=== PATIENT | female | born 1960 | race Caucasian/White ===

== ENCOUNTER 2018-03-05 12:11 | Outpatient (CLI) | payer MEDICARE ==
--- NOTE | 2018-03-09 14:35 | XRAY Report ---
Reason: SOB/MCGOVERN/COUGH X>1 MONTH Procedure Date: 03/05/2018 Accession Number: [id number] / [id number] Procedure: XR - Chest 2 View X-Ray CPT Code: 11459 FULL RESULT: EXAM: CHEST RADIOGRAPHY EXAM DATE: 03/05/2018 12:24 PM. CLINICAL HISTORY: Shortness of breath, dyspnea on exertion, and cough x1 month. COMPARISON: None. TECHNIQUE: 2 views. FINDINGS: Lungs/Pleura: No focal opacities evident. No pleural effusion. No pneumothorax. Normal volumes. Mediastinum: Heart and mediastinal contours are unremarkable. Other: None. IMPRESSION: Normal 2-view chest radiography. RADIA
== END 2018-03-05 12:12 | disposition home or self-care (01) ==
LOC: DI 12:11
PROVIDERS: ATTEND Family Medicine
DX: R06.02 Shortness of breath (principal); R05 Cough; R06.00 Dyspnea, unspecified
CPT/HCPCS: 71046

== ENCOUNTER 2020-06-11 09:56 | Outpatient (CLI) | payer MEDICARE, OTHER ==
--- NOTE | 2020-06-11 11:30 | Ultrasound Report ---
PROCEDURE: Retroperitoneal INDICATIONS: New chronic kidney disease; elevated adrenal hormones TECHNIQUE: Real-time scanning was performed of the retroperitoneal organs, with image documentation. COMPARISON: None. FINDINGS: Both kidneys are normal in size, measuring approximately 10.6 cm in long axis. Cortical thickness is preserved bilaterally. Cortical echogenicity is subjectively heterogeneously and mildly increased lisa aterally. No focal mass. No shadowing calculus or hydronephrosis. The urinary bladder is decompressed and not well evaluated but grossly unremarkable. IMPRESSION: Questionably increased renal parenchymal echogenicity. This could indicate chronic medical renal dise ase in the appropriate clinical setting. No findings of renal atrophy or hydronephrosis. The adrenal glands are not visualized. Reviewed by: Jeffery Nguyen MD on 06/11/2020 11:28 AM PDT Approved by: Jeffery Nguyen MD on 06/11/2020 11:28 AM PDT Station ID: [id number]
== END 2020-06-11 09:57 | disposition home or self-care (01) ==
LOC: DI 09:56
PROVIDERS: ATTEND Family Medicine
DX: N18.9 Chronic kidney disease, unspecified (principal); R79.89 Other specified abnormal findings of blood chemistry

== ENCOUNTER 2020-07-10 17:48 | Outpatient (CLI) | payer MEDICARE, OTHER ==
--- NOTE | 2020-07-11 16:50 | XRAY Report ---
PROCEDURE: Chest 2 View X-Ray INDICATIONS: PLEURITIC CP, RIB TTP, R CHEST WALL TECHNIQUE: 2 view(s) of the chest. COMPARISON: None. FINDINGS: Surgical changes and devices: None. Lungs and pleura: No pleural effusions or pneumothorax. Lungs are clear. Mediastinum: Mediastinal contours are normal. Heart size is normal. Bones and chest wall: No suspicious bony abnormalities. Soft tissues appear unremarkable. IMPRESSION: Two-view chest, no acute disease, source of pain is not seen. Reviewed by: Saurabh Hernández MD on 07/11/2020 4:49 PM PDT Approved by: Saurabh Hernández MD on 07/11/2020 4:49 PM PDT Station ID: [id number]
== END 2020-07-10 17:49 | disposition home or self-care (01) ==
LOC: DI 17:48
PROVIDERS: ATTEND Family Medicine
DX: R07.81 Pleurodynia (principal)

== ENCOUNTER 2021-06-12 14:06 | Outpatient (CLI) | payer MEDICARE ==
--- NOTE | 2021-06-19 09:03 | Mammography Report ---
BILATERAL DIGITAL SCREENING MAMMOGRAM 3D/2D WITH EXAGGERATED CC: 06/12/2021 CLINICAL: Routine screening. Family history of breast cancer. No prior exams were available for comparison. The tissue of both breasts is heterogeneously dense. T his may lower the sensitivity of mammography. No significant masses, calcifications, or other findings are seen in either breast. IMPRESSION: NEGATIVE There is no mammographic evidence of malignancy. A 1 year screening mammogram is recommended. This exam was interpreted at Station ID: [id number]. NOTE: For mammograms, a report in lay terms will be sent to the patient. Approximately 15% of breast malignancies will not be visualized mammographically. In the management of a palpable breast mass, a negative mammogram must not discourage biopsy of a clinically suspicious lesion. Electronically Signed By: Andres Saez M.D. [facility] [place]:06/18/2021 14:48:05 ACR BI-RADS Category 1: Negative 3341F PARENCHYMAL PATTERN: (D) - The breast(s) demonstrate(s) heterogeneously dense fibroglandular sanjuanita odom. BI-RADS CATEGORY: (1) - 1 RECOMMENDATION: (ANNUAL) - Recommend routine annual screening mammography. [id number] 1 year screening LATERALITY: (B)
== END 2021-06-12 14:07 | disposition home or self-care (01) ==
LOC: DI.S 14:06
PROVIDERS: ATTEND Family Medicine
DX: Z12.31 Encounter for screening mammogram for malignant neoplasm of breast (principal); Z80.3 Family history of malignant neoplasm of breast

== ENCOUNTER 2021-06-17 12:51 | Outpatient (CLI) | payer MEDICARE ==
--- NOTE | 2021-06-17 15:56 | DEXA Report ---
PROCEDURE: Dexa Spine and/or Hip INDICATIONS: POSTMENOPAUSAL TECHNIQUE: Dual energy x-ray absorptiometry (DXA) was performed on a [employer] System. Regions measur ed are the AP Spine, femoral neck, and if needed forearm. COMPARISON: None. FINDINGS: Lumbar Spine: Bone Mineral Density 0.979 g/cm/cm,T score -1.7, osteopenia. Left Hip: Bone Mineral Density 0.808 g/cm/cm,T score -1.6, osteopenia. Left Femoral Neck: Bone Mineral Density 0.779 g/cm/cm, T score -1.9, osteopenia. (T score greater or equal to -1.0: NORMAL) (T score from -1.1 to -2.4: OSTEOPENIA) (T score less than or equal to -2.5 to: OSTEOPOROSIS) Impression: Decreased bone mineral density within the osteopenic range. Patients with diagnosis of osteoporosis or osteopenia should have regular bone mineral density assess ment. For those eligible for Medicare, routine testing is allowed once every 2 years. Testing frequ ency can be increased for patients who have rapidly progressing disease or for those who are receivin g medical therapy to restore bone mass. Reviewed by: Chandrakant Chisholm MD on 06/17/2021 3:54 PM PDT Approved by: Chandrakant Chisholm MD on 06/17/2021 3:54 PM PDT Station ID: [id number]
== END 2021-06-17 12:52 | disposition home or self-care (01) ==
LOC: DI 12:51
PROVIDERS: ATTEND Family Medicine
DX: M85.89 Other specified disorders of bone density and structure, multiple sites (principal); Z78.0 Asymptomatic menopausal state

== ENCOUNTER 2023-04-10 16:37 | Emergency (ER) | payer MEDICARE ==
[2023-04-10] MEDS ORDERED: GADOTERATE MEGLUMINE 2.5 MMOL/5 ML VIAL ONE (18:22)
[2023-04-10] MEDS ORDERED: GADOTERATE MEGLUMINE 5 MMOL/10 ML VIAL ONE (18:22)
[2023-04-10 18:36] LABS: BASOPHILS # (AUTO) 0.1 10^3/uL (0.0-0.1); BASOPHILS % (AUTO) 0.6 %; EOSINOPHILS # (AUTO) 0.2 10^3/uL (0.0-0.7); HCT - HEMATOCRIT 37.3 % (37.0-47.0); HGB - HEMOGLOBIN 12.5 g/dL (12.0-16.0); LYMPHOCYTES # (AUTO) 2.5 10^3/uL (1.5-3.5); LYMPHOCYTES % (AUTO) 31.9 %; MEAN CORPUSCULAR HEMOGLOBIN 32.2 pg (27.0-31.0); MEAN CORPUSCULAR HGB CONC 33.5 g/dL (32.0-36.0); MEAN CORPUSCULAR VOLUME 96.1 fL (81.0-99.0); MEAN PLATELET VOLUME 9.5 fL (7.9-10.8); MONOCYTES # (AUTO) 0.6 10^3/uL (0.0-1.0); MONOCYTES % (AUTO) 7.6 %; NEUTROPHILS # (AUTO) 4.5 10^3/uL (1.5-6.6); NEUTROPHILS % (AUTO) 57.6 %; PLT - PLATELET COUNT 320 10^3/uL (130-450); RED BLOOD COUNT 3.88 10^6/uL (4.20-5.40); RED CELL DISTRIBUTION WIDTH 12.9 % (12.0-15.0); WHITE BLOOD COUNT 7.8 x10^3/uL (4.8-10.8)
--- NOTE | 2023-04-10 18:41 | CT Report ---
PROCEDURE: Head WO INDICATIONS: R papilledema TECHNIQUE: Noncontrast 4.5 mm thick angled axial sections acquired from the foramen magnum to the vertex. For r adiation dose reduction, the following was used: automated exposure control, adjustment of mA and/or kV according to patient size. COMPARISON: None. FINDINGS: Image quality: Excellent. CSF spaces: Basal cisterns are patent. No extra-axial fluid collections. Ventricles are normal in size and shape. Brain: No midline shift. No intracranial masses or hemorrhage. Jessica-white matter interface is norm al. Skull and face: Calvarium and visualized facial bones are intact, without suspicious lesions. Sinuses: Visualized sinuses and mastoids are clear. IMPRESSION: No acute intracranial pathology. Reviewed by: Thony Akbar MD on 04/10/2023 6:[address] [facility] Approved by: Thony Akbar MD on 04/10/2023 6:[address] [facility] Station ID: [id number]
--- NOTE | 2023-04-10 18:42 | CT Report ---
PROCEDURE: Orbits WO INDICATIONS: R papilledema TECHNIQUE: Noncontrast 2.0 mm axial images acquired through the orbits. For radiation dose reduction, the follo wing was used: automated exposure control, adjustment of mA and/or kV according to patient size. COMPARISON: None FINDINGS: Image quality: Excellent. Orbits: Globes are symmetrical. No metallic foreign bodies. The optic nerves are normal in size. No retrobulbar masses or fat abnormalities. The extra-ocular muscles are normal and symmetrical in a ppearance. Lacrimal glands are normal in size. Optic chiasm is normal. Intracranial: Visualized portions of the cerebral hemispheres, brainstem, and spinal cord are normal . Bones and sinuses: Visualized calvarium and facial bones appear intact. Visualized sinuses and mast oids are clear. IMPRESSION: Normal CT of the orbits. Reviewed by: Thony Akbar MD on 04/10/2023 6:40 PM [facility] Approved by: Thony Akbar MD on 04/10/2023 6:40 PM [facility] Station ID: [id number]
[2023-04-10 18:47] LABS: CALCIUM 9.5 mg/dL (8.5-10.3); CREATININE 0.9 mg/dL (0.6-1.3); POTASSIUM 3.8 mmol/L (3.5-4.5)
--- NOTE | 2023-04-10 18:58 | ED Physician Documentation ---
PD HPI OPHTHO - Stated complaint Stated Complaint: RT EYE INJ - Chief complaint Chief Complaint: Heent - History obtained from History obtained from: Patient - History of Present Illness Timing - onset: How many days ago (2) Timing - duration: Days (2) Timing - details: Gradual onset Pain level max: 0 Pain level now: 0 Location: Right Associated symptoms: No: Swelling, Tearing, Discharge, Matting, FB sensation, Photophobia, Double vision, Headache - Additional information Additional information: Patient is a 62-year-old female sent in by her electronic heat seal operator. She states that she was told she has papilledema of the right eye. She has had blurred vision for the past 2 days. She states it is like the bottom half of her vision is smeared with Vaseline. The top of the vision in the right eye is normal. She saw an electronic heat seal operator today who sent her here for a CT/MRI of the orbits. No falls. No trauma. No headaches. She states that she did have some redness around the right periorbital area a few days ago, was started on Polytrim ophthalmic. She was also started on Keflex. The redness around the eye has resolved. There is no redness of the sclera. Had an otherwise normal ophthalmological exam today. Review of Systems Constitutional: denies: Fever, Chills GI: denies: Vomiting, Diarrhea Skin: denies: Rash Musculoskeletal: denies: Neck pain, Back pain Neurologic: denies: Focal weakness, Numbness, Confused, Headache, Head injury, LOC PD PAST MEDICAL HISTORY - Past Medical History Past Medical History: Yes Psych: Depression, Anxiety, Post traumatic stress disorder - Past Surgical History Past Surgical History: Yes General: Appendectomy /RESIDENTIAL SALES CONSULTANT: Tubal ligation - Present Medications Home Medications: Ambulatory Orders Medication Instructions Recorded Confirmed Polymyxin B/Trimeth Ophth Drop 1 drops EACHEYE DAILY 04/10/23 04/10/23 [Polytrim Ophth Drops] - Allergies Allergies/Adverse Reactions: Allergies Allergy/AdvReac Type Severity Reaction Status Date / Time chloramphenicol Allergy Unknown Verified 04/10/23 16:51 - Social History Does the pt smoke?: No Smoking Status: Never smoker PD ED PE NORMAL - Vitals Vital signs reviewed: Yes - General General: Alert and oriented X 3, No acute distress - HEENT HEENT: PERRL, EOMI, Moist mucous membranes, Other (No pain with extraocular movement. Normal periorbital exam) - Neck Neck: Supple, no meningeal sign - Cardiac Cardiac: RRR, Strong equal pulses - Respiratory Respiratory: No respiratory distress, Clear bilaterally - Abdomen Abdomen: Soft, Non tender, Non distended - Derm Derm: Warm and dry - Neuro Neuro: Alert and oriented X 3, vp foundation 2-12 intact, No motor deficit, No sensory deficit, Normal speech Eye Opening: Spontaneous Motor: Obeys Commands Verbal: Oriented GCS Score: 15 - Psych Psych: Normal mood, Normal affect Results - Vitals Vitals: Vital Signs - 24 hr 04/10/23 04/10/23 16:46 20:20 Temperature 36.7 C 36.7 C Heart Rate 78 72 Respiratory 18 18 Rate Blood Pressure 124/90 H 122/80 O2 Saturation 99 100 Oxygen O2 Source Room air - Labs Labs: Laboratory Tests 04/10/23 04/10/23 18:31 18:31 WBC 7.8 RBC 3.88 L Hgb 12.5 Hct 37.3 MCV 96.1 MCH 32.2 H MCHC 33.5 RDW 12.9 Plt Count 320 MPV 9.5 Neut # (Auto) 4.5 Lymph # (Auto) 2.5 [place] # (Auto) 0.6 Eos # (Auto) 0.2 Baso # (Auto) 0.1 Absolute Nucleated RBC 0.00 Nucleated RBC % 0.0 Sodium 135 Potassium 3.8 Chloride 100 L Carbon Dioxide 27 Anion Gap 8.0 BUN 20 Creatinine 0.9 Estimated GFR (MDRD) 63 L Glucose 96 Calcium 9.5 - Rads (name of study) orbit CT Relevant Findings:: Final report received, See rad report orbit MRI Relevant Findings:: Final report received, See rad report head CT Relevant Findings:: Final report received, See rad report PD Medical Decision Making - ED course Complexity details: reviewed results, re-evaluated patient, considered differential, d/w patient ED course: 62-year-old female was sent here for MRI of the orbits and CT of the orbits due to findings of possible papilledema on outpatient examination today with ophthalmology. No report was given by the electronic heat seal operator. Patient states that she was supposed to get the testing and then follow-up with him next week. No acute findings on CT scan of the head or orbits. No acute findings on MRI of the orbits and head. No evidence of inflammation or edema. No evidence of tumors or masses. Ventricles are normal in size. She has an appointment to follow-up with her electronic heat seal operator regarding the results of the studies. Normal neurological exam. Normal gait. No focal neurological deficits. Patient counseled regarding signs and symptoms for which I believe and urgent re- evaluation would be necessary. Patient with good understanding of and agreement to plan and is comfortable going home at this time This document was made in part using voice recognition software. While efforts are made to proofread this document, sound alike and grammatical errors may occur. Departure - Departure Disposition: , Self Care Clinical Impression: Vision changes Condition: Good Instructions: Vision Probs Follow-Up: TAYLA ROSAS JR, MD [Physician No Access] - Comments: Your CT scan does not show any acute abnormalities today. Your orbit MRI with and without contrast does not show any abnormalities either. Please follow-up with your electronic heat seal operator on Thursday as scheduled. Please return if you worsen. PROCEDURE: ORBITS/FACE W/WO INDICATIONS: papilledema R eye CONTRAST: CLARISCAN 12.6 ML TECHNIQUE: Noncontrast sagittal T1 spin echo, axial FLAIR, axial gradient echo, axial diffusion and ADC acquired through the brain. Coronal STIR, thin-slice axial T1 spin echo through the orbits. After the administration of contrast, thin slice axial and coronal T1 spin echo with fat saturation through the orbits, axial T1 spin echo with fat saturation through the brain. COMPARISON: None. FINDINGS: Image quality: Excellent. Orbits: Globes are symmetrical. The optic nerves are normal in size, without abnormal signal or enhancement. No retrobulbar masses or fat abnormalities. The extra-ocular muscles are normal and symmetric in appearance. Lacrimal glands are normal. Optic chiasm is normal. Periorbital soft tissues appear normal. CSF spaces: Ventricles are normal in size and shape. Basal cisterns are patent. No extra-axial fluid collections. Brain: No intracranial bleeds or mass effects. No abnormal intracranial enhancement. Jessica-white matter interface is intact. Diffusion weighted images demonstrate no acute ischemic insults. Pituitary gland appears normal, without sellar or suprasellar masses. Brainstem appears normal. Normal intravascular flow voids are present. Skull and face: Calvarial marrow is normal in signal. Sinuses: Sinuses and mastoids are clear. IMPRESSION: Normal MRI of the orbits. No acute intracranial process. Reviewed by: Thony Akbar MD on 04/10/2023 7:30 PM PST Approved by: Thony Akbar MD on 04/10/2023 7:30 PM PST Station ID: [id number] Report Electronically Signed by Thony Akbar MD 04/10/[id number] cc: Selina Jackson MD; Matteo Beckford MD ADDENDUM ORIGINAL REPORT PROCEDURE: ORBITS/FACE W/WO INDICATIONS: papilledema R eye CONTRAST: CLARISCAN 12.6 ML TECHNIQUE: Noncontrast sagittal T1 spin echo, axial FLAIR, axial gradient echo, axial diffusion and ADC acquired through the brain. Coronal STIR, thin-slice axial T1 spin echo through the orbits. After the administration of contrast, thin slice axial and coronal T1 spin echo with fat saturation through the orbits, axial T1 spin echo with fat saturation through the brain. COMPARISON: None. FINDINGS: Image quality: Excellent. Orbits: Globes are symmetrical. The optic nerves are normal in size, without abnormal signal or enhancement. No retrobulbar masses or fat abnormalities. The extra-ocular muscles are normal and symmetric in appearance. Lacrimal glands are normal. Optic chiasm is normal. Periorbital soft tissues appear normal. CSF spaces: Ventricles are normal in size and shape. Basal cisterns are patent. No extra-axial fluid collections. Brain: No intracranial bleeds or mass effects. No abnormal intracranial enhancement. Jessica-white matter interface is intact. Diffusion weighted images demonstrate no acute ischemic insults. Pituitary gland appears normal, without sellar or suprasellar masses. Brainstem appears normal. Normal intravascular flow voids are present. Skull and face: Calvarial marrow is normal in signal. Sinuses: Sinuses and mastoids are clear. IMPRESSION: Normal MRI of the orbits. No acute intracranial process. Reviewed by: Thony Akbar MD on 04/10/2023 7:30 PM PST Approved by: Thony Akbar MD on 04/10/2023 7:30 PM PST ADDENDUM #1 Addendum: Additional images submitted for review. Findings and impression remain unchanged. Normal, symmetric enhancement of the optic nerve without enlargement. Reviewed by: Thony Akbar MD on 04/10/2023 7:45 PM PST Approved by: Thony Akbar MD on 04/10/2023 7:45 PM PST Station ID: [id number] Addendum Pre Sales Technical Engineer: [facility] Addendum Reading Radiologist: Thony Akbar MD Addendum Releasing Radiologist: Thony Akbar MD Addendum Released Date Time: 04/10/231944 Report [id number] PROCEDURE: Head WO INDICATIONS: R papilledema TECHNIQUE: Noncontrast 4.5 mm thick angled axial sections acquired from the foramen magnum to the vertex. For radiation dose reduction, the following was used: automated exposure control, adjustment of mA and/or kV according to patient size. COMPARISON: None. FINDINGS: Image quality: Excellent. CSF spaces: Basal cisterns are patent. No extra-axial fluid collections. Ventricles are normal in size and shape. Brain: No midline shift. No intracranial masses or hemorrhage. Jessica-white matter interface is normal. Skull and face: Calvarium and visualized facial bones are intact, without suspicious lesions. Sinuses: Visualized sinuses and mastoids are clear. IMPRESSION: No acute intracranial pathology. PROCEDURE: Orbits WO INDICATIONS: R papilledema TECHNIQUE: Noncontrast 2.0 mm axial images acquired through the orbits. For radiation dose reduction, the following was used: automated exposure control, adjustment of mA and/or kV according to patient size. COMPARISON: None FINDINGS: Image quality: Excellent. Orbits: Globes are symmetrical. No metallic foreign bodies. The optic nerves are normal in size. No retrobulbar masses or fat abnormalities. The extra-ocular muscles are normal and symmetrical in appearance. Lacrimal glands are normal in size. Optic chiasm is normal. Intracranial: Visualized portions of the cerebral hemispheres, brainstem, and spinal cord are normal. Bones and sinuses: Visualized calvarium and facial bones appear intact. Visualized sinuses and mastoids are clear. IMPRESSION: Normal CT of the orbits. Forms: PCP List Discharge Date/Time: 04/10/23 20:20
[2023-04-10] MEDS ORDERED: GADOTERATE MEGLUMINE 5 MMOL/10 ML VIAL IVP ONE (19:25)
--- NOTE | 2023-04-10 19:31 | MRI Report ---
PROCEDURE: ORBITS/FACE W/WO INDICATIONS: papilledema R eye CONTRAST: CLARISCAN 12.6 ML TECHNIQUE: Noncontrast sagittal T1 spin echo, axial FLAIR, axial gradient echo, axial diffusion and ADC acquired through the brain. Coronal STIR, thin-slice axial T1 spin echo through the orbits. After the admin istration of contrast, thin slice axial and coronal T1 spin echo with fat saturation through the orbi ts, axial T1 spin echo with fat saturation through the brain. COMPARISON: None. FINDINGS: Image quality: Excellent. Orbits: Globes are symmetrical. The optic nerves are normal in size, without abnormal signal or enh ancement. No retrobulbar masses or fat abnormalities. The extra-ocular muscles are normal and symme tric in appearance. Lacrimal glands are normal. Optic chiasm is normal. Periorbital soft tissues a ppear normal. CSF spaces: Ventricles are normal in size and shape. Basal cisterns are patent. No extra-axial flu id collections. Brain: No intracranial bleeds or mass effects. No abnormal intracranial enhancement. Jessica-white ma tter interface is intact. Diffusion weighted images demonstrate no acute ischemic insults. Pituitar y gland appears normal, without sellar or suprasellar masses. Brainstem appears normal. Normal intr avascular flow voids are present. Skull and face: Calvarial marrow is normal in signal. Sinuses: Sinuses and mastoids are clear. IMPRESSION: Normal MRI of the orbits. No acute intracranial process. Reviewed by: Thony Akbar MD on 04/10/2023 7:30 PM PST Approved by: Thony Akbar MD on 04/10/2023 7:30 PM PST Station ID: [id number]
[2023-04-10 20:34] VITALS: BP 122/80; O2SAT 100
== END 2023-04-10 20:20 | disposition home or self-care (01) ==
LOC: ED 16:37
DX: H53.8 Other visual disturbances (principal)
CPT/HCPCS: 36415; 70450; 70480; 70543; 80048; 85025; 99283; 99284; A9575

== ENCOUNTER 2023-04-14 17:44 | Emergency (ER) | payer MEDICARE ==
[2023-04-14 18:27] VITALS: BP 164/79; O2SAT 100
--- NOTE | 2023-04-14 18:48 | ED Physician Documentation ---
History of Present Illness - Stated complaint Stated Complaint: RT EYE VISION ISSUE - Chief complaint Chief Complaint: Heent - History obtained from History obtained from: Patient - History of Present Illness Pain level max: 0 Pain level now: 0 - Additonal information Additional information: 62-year-old female with vision changes for the past 2 weeks. She was seen here last week with an MRI and CT scan of her head and orbits. Saw her supervisor assembly department again today who sent her back for a sed rate and CRP. Patient has no other acute issues. No headache. No fevers. No chills. Review of Systems Constitutional: denies: Fever, Chills GI: denies: Vomiting PD PAST MEDICAL HISTORY - Past Medical History Past Medical History: Yes Cardiovascular: None Respiratory: None Neuro: None Endocrine/Autoimmune: None GI: None [employer]: None : None HEENT: None Psych: Depression, Anxiety, Post traumatic stress disorder Musculoskeletal: None Derm: None - Past Surgical History Past Surgical History: Yes General: Appendectomy /[employer]: Tubal ligation - Present Medications Home Medications: Ambulatory Orders Medication Instructions Recorded Confirmed predniSONE [Deltasone] 30 mg PO DAILY 04/14/23 04/14/23 - Allergies Allergies/Adverse Reactions: Allergies Allergy/AdvReac Type Severity Reaction Status Date / Time chloramphenicol Allergy Unknown Verified 04/14/23 18:13 - Social History Does the pt smoke?: No Smoking Status: Never smoker Does the pt drink ETOH?: Yes ETOH Use: Beer Does the pt have substance abuse?: Yes Substance Use and Type: Marijuana - Immunizations Immunizations are current?: Yes - POLST Patient has POLST: No PD ED PE NORMAL - Vitals Vital signs reviewed: Yes - General General: Alert and oriented X 3, No acute distress - HEENT HEENT: PERRL, EOMI, Moist mucous membranes - Neck Neck: Supple, no meningeal sign - Cardiac Cardiac: RRR - Respiratory Respiratory: No respiratory distress, Clear bilaterally - Derm Derm: Warm and dry - Neuro Neuro: Alert and oriented X 3 Results - Vitals Vitals: Vital Signs - 24 hr 04/14/23 18:14 Temperature 36.3 C L Heart Rate 90 Respiratory 16 Rate Blood Pressure 164/79 H O2 Saturation 100 Oxygen O2 Source Room air - Labs Labs: Laboratory Tests 04/14/23 04/14/23 18:32 18:32 ESR 15 C-Reactive Protein < 0.5 PD Medical Decision Making - ED course Complexity details: reviewed results, considered differential, d/w patient ED course: Sed rate and CRP are both normal. Patient is being worked up for the right- sided papilledema by her supervisor assembly department. I did recommend to the patient that she may want to consider seeing a neuro-supervisor assembly department as there are neurolog ical conditions that can cause papilledema as well. I gave the patient information for neuro-supervisor assembly department in the area. I did attempt to call her supervisor assembly department, but his office is closed and he has gone home for the day. There is no after-hours call number available. Patient is following up closely with her supervisor assembly department. Patient counseled regarding signs and symptoms for which I believe and urgent re-evaluation would be necessary. Patient with good understanding of and agreement to plan and is comfortable going home at this time This document was made in part using voice recognition software. While efforts are made to proofread this document, sound alike and grammatical errors may occur. Departure - Departure Disposition: 01 Home, Self Care Clinical Impression: Vision changes Condition: Good Instructions: ED Blurred Vision Follow-Up: TAYLA ROSAS JR, MD [Physician No Access] - TAYLA ROSAS III, MD [Physician No Access] - Comments: Your CRP is normal at less than 0.5 and your ESR or sed rate is also normal at 15. Please follow-up with your supervisor assembly department as scheduled. I have also included names and phone numbers of neuro-ophthalmologists. Neuro-Ophthalmology [facility] [address], [address], [place] [address] 20.[address] away [phone] Department of Ophthalmology [address] [place] [address]. [place] [address] (academic offices) [facility] (mailing address) [address], [address] [place] [address] Mansi Romero MD [facility] [address] [place] [address], [address] [place] [address] Main: [phone] Locate on Map Forms: PCP List Discharge Date/Time: 04/14/23 19:20
== END 2023-04-14 19:20 | disposition home or self-care (01) ==
LOC: ED 17:44
DX: H53.9 Unspecified visual disturbance (principal)
CPT/HCPCS: 36415; 85651; 86140; 99283

== ENCOUNTER 2023-05-25 13:37 | Outpatient (CLI) | payer MEDICARE ==
[2023-05-25] MEDS ORDERED: IOVERSOL 320 100 ML VIAL IVP ONE (14:29)
[2023-05-25] MEDS: IOVERSOL 320 100 ML VIAL IVP ONE (18:33)
--- NOTE | 2023-05-25 19:46 | CT Report ---
PROCEDURE: Angio Head/Neck INDICATIONS: VISUAL PROBLEMS TECHNIQUE: After the administration of intravenous contrast, 1 mm thick sections acquired from the aortic arch t hrough the [place] of [place]. 3-dimensional cigewls-onteiwswr-klgomilmmc (MIP) and/or volume renderin g reformats were acquired of the central intracranial vasculature and neck separately. For radiation dose reduction, the following was used: automated exposure control, adjustment of mA and/or kV acco rding to patient size. CONTRAST: Optiray 320- 80ml COMPARISON: None. FINDINGS: Image quality: Limited by bolus timing, with venous contamination. HEAD CT: CSF Spaces: Basal cisterns are patent. No extra-axial fluid collections. Ventricles are normal in size and shape. Brain: No significant abnormality is seen for scanning technique. Skull and face: Calvarium and visualized facial bones appear intact, without suspicious lesions. Sinuses: Visualized sinuses and mastoids are clear. HEAD CT ANGIOGRAPHY: Anterior circulation: Intracranial internal carotid arteries are normal in size and flow. The flow within the paired anterior cerebral arteries is normal and symmetric. The flow within the middle cer ebral arteries is normal and symmetric. The anterior communicating artery is seen. No aneurysms are seen. Posterior circulation: Visualized portions of the vertebral arteries demonstrate normal caliber, and join to form a normal appearing basilar artery. Flow within the posterior cerebral arteries is norm al and symmetric. No aneurysms are seen. NECK CT ANGIOGRAPHY: Carotid system: The great vessels demonstrate a conventional anatomy as they arise from the aortic a rch. The origins of the common carotid arteries appear patent. The common carotid arteries demonstr ate normal caliber and courses. The bifurcation regions are both widely patent. The internal caroti d arteries demonstrate normal calibers and courses. Posterior circulation: The origins of the vertebral arteries both appear widely patent. The more griffith perior extracranial portions of both vertebral arteries also demonstrate normal courses and calibers. They join to form a normal appearing basilar artery. Soft tissues: Visualized neck soft tissues demonstrate no suspicious abnormalities. Bones: No suspicious bony lesions. Visualized cervical spine appears normally aligned. Focal lower cervical spine degenerative change can be seen. IMPRESSION: No significant intracranial arterial abnormality is seen. No significant abnormality is seen within the arteries of the neck. The estimate of stenosis included in the report of the imaging study was calculated using the NASCET method Reviewed by: Jaswinder Mosley MD on 05/25/2023 6:44 PM [facility] Approved by: Jaswinder Mosley MD on 05/25/2023 6:44 PM [facility] Station ID: [id number]
== END 2023-05-25 13:38 | disposition home or self-care (01) ==
LOC: LAB 13:37
PROVIDERS: ATTEND Specialist
DX: Z01.812 Encounter for preprocedural laboratory examination (principal); H54.7 Unspecified visual loss; H47.10 Unspecified papilledema; H53.481 Generalized contraction of visual field, right eye
CPT/HCPCS: 36415; 70496; 70498; 82565; Q9967

== ENCOUNTER 2023-05-26 13:59 | Outpatient (CLI) | payer MEDICARE ==
--- NOTE | 2023-05-28 07:33 | Mammography Report ---
BILATERAL DIGITAL SCREENING MAMMOGRAM 3D/2D: 05/26/2023 CLINICAL: Routine screening. Family history of breast cancer. Comparison is made to exam dated: 06/12/2021 mammogram - [facility]. Both breasts are heterogeneously dense, which may obscure small masses (category c / 51-75% glandular tissue). No significant masses, calcifications, or other findings are seen in either breast. There has been no significant interval change. IMPRESSION: NEGATIVE There is no mammographic evidence of malignancy. A 1 year screening mammogram is recommended. Based on the Tyrer Cuzick model (a risk assessment model) the patient's lifetime risk is 10.3% and he r 10 year risk is 4.6%. According to the ACR, ACS, and NCCN guidelines, an annual breast MRI exam boubacar ng with mammogram is recommended if the patient's lifetime risk is 20% or greater. This exam was interpreted at Station ID: [id number]. NOTE: For mammograms, a report in lay terms will be sent to the patient. Approximately 15% of breast malignancies will not be visualized mammographically. In the management of a palpable breast mass, a negative mammogram must not discourage biopsy of a clinically suspicious lesion. Electronically Signed By: Brissa Campbell M.D., PH.D eb/penrad:05/27/2023 14:19:57 letter sent: No_Letter ACR BI-RADS Category 1: Negative 3341F PARENCHYMAL PATTERN: (D) - The breast(s) demonstrate(s) heterogeneously dense fibroglandular sanjuanita odom. BI-RADS CATEGORY: (1) - 1 RECOMMENDATION: (ANNUAL) - Recommend routine annual screening mammography. [id number] 1 year screening LATERALITY: (B)
== END 2023-05-26 14:00 | disposition home or self-care (01) ==
LOC: DI.S 13:59
PROVIDERS: ATTEND Family Medicine
DX: Z12.31 Encounter for screening mammogram for malignant neoplasm of breast (principal); R92.333 Mammographic heterogeneous density, bilateral breasts; Z80.3 Family history of malignant neoplasm of breast